=== PATIENT | female | born 1970 | race Caucasian/White ===

== ENCOUNTER 2018-04-18 16:18 | Emergency (ER) | payer OTHER ==
[~2018-04-18] VITALS: Ht 152.4 cm; Wt 51.7 kg
[~2018-04-18 16:18] MED LIST: ALEVE220 MG PO; FLEXERIL PO; IBUPROFEN 800800 M1 PO; L-LYSINE1000 M1 PO; NAPROSYN500 MG PO; NORCO 5-325 TA1 EACH PO; PROGESTERONE100 MG PO; TESTOSTERONE; ULTRAM 50MG TAB50 MG PO
[2018-04-18 16:47] LABS: URINE BILIRUBIN NEGATIVE (Negative); URINE BLOOD TRACE (Negative); URINE CLARITY CLEAR; URINE COLOR YELLOW; URINE GLUCOSE-RANDOM NEGATIVE (Negative); URINE KETONES NEGATIVE (Negative); URINE LEUKOCYTES-REFLEX NEGATIVE (Negative); URINE NITRITE-REFLEX NEGATIVE (Negative); URINE PROTEIN NEGATIVE (Negative); URINE UROBILINOGEN 0.2 E.U./dl (0.2-1.0)
[2018-04-18 17:02] LABS: ABSOLUTE BASOPHILS 0.1 thou/uL (0.0-0.2); ABSOLUTE EOSINOPHILS 0.1 thou/uL (0.0-0.7); ABSOLUTE LYMPHOCYTES 1.5 thou/uL (0.8-5.3); ABSOLUTE MONOCYTES 0.5 thou/uL (0.0-1.2); ABSOLUTE NEUTROPHILS 3.4 thou/uL (1.6-8.1); BASOPHILS 1.1 %; EOSINOPHILS 1.5 %; HEMOGLOBIN 13.3 gm/dL (12.0-15.0); LYMPHOCYTES 26.8 %; MCH 33.7 pg (26.0-34.0); MCHC 34.1 g/dL (28.0-37.0); MCV 98.6 fL (80.0-100.0); MONOCYTES 8.5 %; MPV 8.7 fl. (7.2-11.1); NUCLEATED RBCS 0 /100WBC; PLATELET COUNT* 236 thou/uL (150-400); POLYS 62.1 %; RBC 3.95 mil/uL (4.20-5.00); RDW-CV 11.9 % (10.5-14.5); WBC 5.5 thou/uL (4.0-11.0)
[2018-04-18 17:07] LABS: CALCIUM 8.7 mg/dL (8.5-10.1); CREATININE 0.8 mg/dL (0.6-1.3); POTASSIUM 3.7 mmol/L (3.5-5.1)
[2018-04-18 17:17] LABS: ALBUMIN 3.7 g/dL (3.4-5.0); TOTAL BILIRUBIN 0.2 mg/dL (<0.1-1.0); TOTAL PROTEIN 7.2 g/dL (6.4-8.2)
[2018-04-18] MEDS ORDERED: NORCO 5-325 TA1 EACH PO (18:05)
[2018-04-18] MEDS ORDERED: ZOFRAN ODT4 MG PO (18:05)
[2018-04-18 18:22] VITALS: BP 114/65
== END 2018-04-18 18:23 | disposition home or self-care (01) ==
LOC: M.ERS 16:18
PROVIDERS: Personal Emergency Response Attendant
DX: R10.31 Right lower quadrant pain (principal)